=== PATIENT | male | born 1990 | race Caucasian/White ===

== ENCOUNTER 2020-07-15 14:16 | Emergency (ER) | payer OTHER ==
[~2020-07-15] VITALS: Ht 172.7 cm; Wt 74.8 kg
--- NOTE | 2020-07-15 14:16 | NUR ---
[facility] and [employer], patient is hearing voices "[employer] is going after me" Meth was found in his possession APPLICATIONS PROCESSOR, uncooperative during triage, to ER bed 14, hooked to BP cuff and POX, changed to hosp gown, warm blanket provided, breathing even and unlabored. Awaiting MD abarca
--- NOTE | 2020-07-15 14:32 | NUR ---
DR SAFNORD AT BEDSIDE
[2020-07-15 16:47] LABS: BASOPHILS # (AUTO) 0.1 /CMM (0.0-0.2); BASOPHILS % (AUTO) 0.6 % (0.0-2.0); HEMATOCRIT 46 % (39-51); LYMPHOCYTES # (AUTO) 1.5 /CMM (0.8-4.8); LYMPHOCYTES % (AUTO) 17.2 % (20.0-44.0); MEAN CORPUSCULAR HGB CONC 33 g/dl (31.0-36.0); MEAN CORPUSCULAR VOLUME 95 fL (80-96); MONOCYTES # (AUTO) 0.8 /CMM (0.1-1.30); MONOCYTES % (AUTO) 9.4 % (2.0-12.0); NEUTROPHILS # (AUTO) 6.2 /CMM (1.8-8.9); NEUTROPHILS % (AUTO) 70.8 % (43.0-81.0); PLATELET COUNT (AUTO) 202 /CMM (150-450); RED BLOOD CELL COUNT(AUTO) 4.87 MIL/uL (4.5-6.0); WHITE BLOOD COUNT (AUTO) 8.8 K/uL (4.3-11.0)
[2020-07-15 17:45] LABS: ALANINE AMINOTRANSFERASE 24 U/L (12-78); ALKALINE PHOSPHATASE 78 U/L (46-116); ASPARTATE AMINOTRANSFERASE 18 U/L (15-37); BILIRUBIN,DIRECT 0.1 mg/dL (0.0-0.2); BILIRUBIN,TOTAL 0.5 mg/dL (0.2-1.0); CALCIUM, SERUM 9.1 mg/dL (8.5-10.1); CARBON DIOXIDE 24 mmol/L (21-32); CHLORIDE 107 mmol/L (98-107); CREATININE 1.2 mg/dL (0.6-1.3); GLUCOSE 89 mg/dL (74-106); POTASSIUM 4.2 mmol/L (3.5-5.1); SALICYLATE 3.6 mg/dL (2.8-20.0); SODIUM SERUM 140 mmol/L (136-145); TOTAL PROTEIN, SERUM 7.5 g/dL (6.4-8.2); UREA NITROGEN, BLOOD 14 mg/dL (7-18)
[2020-07-15 17:51] LABS: ACETAMINOPHEN < 10 ug/ml (10-30)
[2020-07-15 19:03] LABS: ALCOHOL, BLOOD < 3 mg/dL (0-0)
--- NOTE | 2020-07-15 20:13 | NUR ---
ASSUMED CARE FOR THIS PT.
--- NOTE | 2020-07-15 20:14 | NUR ---
PT ALERT AND AWAKE AT BEDSIDE. PT ENDORSED HEARING VOICES. -SI -HI. PT CONNECTED TO THE CARDIAC MONTIOR AND POX. SITTER AT BEDSIDE FOR SAFETY. CALL LIGHT WITHIN REACH.
--- NOTE | 2020-07-15 21:21 | NUR ---
URINE COLLECTED AND SENT TO LAB
[2020-07-15 21:34] LABS: APPEARANCE,URINE Clear (CLEAR); BILIRUBIN,URINE SMALL (NEGATIVE); BLOOD, URINE Trace-intact Ery/uL (NEGATIVE); COLOR,URINE Yellow (YELLOW); KETONES,URINE Negative (NEGATIVE); LEUKOCYTE ESTERASE ,URINE Negative (NEGATIVE); NITRITE, URINE Negative (NEGATIVE); PH,URINE 5.5 (5.0-8.0); PROTEIN,URINE Negative (NEGATIVE); UGLUCOSE Negative (NEGATIVE); UROBILINOGEN,URINE 0.2 EU/dL (0.2)
[2020-07-15 21:54] LABS: BACTERIA,URINE Rare /HPF (None Seen); RBC,URINE 2-3/HPF /HPF (0-2); SQUAMOUS EPITHELIAL CELL,UR Few /HPF (None Seen); WBC,URINE 0-2 /HPF (0-3)
[2020-07-15 21:55] LABS: URINE AMORPHOUS URATE Few /HPF (None Seen)
--- NOTE | 2020-07-15 22:15 | NUR ---
PT RESTING COMFORTABLY IN BED. VSS. NO ACUTE DISTRESS NOTED. PT CONNECTED TO THE MONITOR AND POX. CALL LIGHT WITHIN REACH. SITTER AT BEDSIDE FOR SAFETY.
[2020-07-16] MEDS ORDERED: OLANZAPINE 10 MG VIAL IM ONE (00:14)
--- NOTE | 2020-07-16 00:15 | NUR ---
PT STARTED TO BECOME AGGRESSIVE W/ STAFF. MADE AWARE
[2020-07-16] MEDS: OLANZAPINE 10 MG VIAL IM ONE (00:20)
--- NOTE | 2020-07-16 03:14 | NUR ---
PT ASLEEP. VSS. NO ACUTE DISTRESS NOTED. PT CONNECTED TO THE MONITOR AND POX. CALL LIGHT WITHIN REACH. SITTER AT BEDSIDE FOR SAFETY.
--- NOTE | 2020-07-16 08:21 | NUR ---
lizzeth culpw called for eval/placement
--- NOTE | 2020-07-16 09:55 | NUR ---
Data Processing Control Clerk Consult requested by JAS Harris. This SW attempted to meet with the patient at bedside. Patient did not want to cooperate with this SW. Patient mumbled responses and when redirected to speak up patient did not want to.Per MD note, "The patient is a 30-year-old male, presenting to the ER because he was acting bizarre, has auditory hallucination that tell him to harm he is going up to him. He was brought to the ER by ambulance and [employer]." This SW to follow up with the patient at a later time.
--- NOTE | 2020-07-16 14:32 | NUR ---
PATIENT SEEN BY AMITA, RESOURCES PROVIDED. PATIENT PROVIDED MEALS.
--- NOTE | 2020-07-16 14:33 | NUR ---
Patient given written and verbal discharge instructions. Patient verbalizes understanding of instructions. Patient is ambulatory with steady gait. Refuses offer of [facility] placement. Patient given list of available shelters in surrounding area. Refused to sign paperworks.
[2020-07-16 14:34] VITALS: BP 121/62
--- NOTE | 2020-07-16 14:34 | NUR ---
PATIENT A/OX4, AMBULATORY WITH STEADY GAIT.
--- NOTE | 2020-07-16 15:42 | NUR ---
SW met with the patient. Patient did not want to speak with this SW. Patient verbalized he wanted to eat and go home. Patient denied suicidal and homicidal ideation. This SW notified Dr. Burgos about this.
== END 2020-07-16 14:36 | disposition home or self-care (01) ==
LOC: ER 15:06
DX: F23 Brief psychotic disorder (principal); R45.851 Suicidal ideations; F15.10 Other stimulant abuse, uncomplicated
CPT/HCPCS: 36415; 80048; 80076; 80305; 80307; 80329; 81001; 82550; 85025; 96372; 99285; G0480; J3490; 81000-TC

== ENCOUNTER 2025-02-10 11:11 | Emergency (ER) | payer OTHER ==
[~2025-02-10] VITALS: Ht 177.8 cm; Wt 74.8 kg
[2025-02-10 11:18] VITALS: BP 138/79; TEMP 98.3; O2SAT 98
== END 2025-02-10 11:42 ==
LOC: ER 11:21
DX: Z00.00 Encounter for general adult medical examination without abnormal findings (principal)